=== PATIENT | female | born 1980 | race African-American/Black ===

== ENCOUNTER 2024-12-30 11:26 | Emergency (ER) | payer MEDICAID, OTHER ==
[~2024-12-30] VITALS: Ht 149.9 cm; Wt 61.3 kg
[2024-12-30 12:17] VITALS: TEMP 98.1
--- NOTE | 2024-12-30 12:39 | ED.PDOC ---
HPI (NEURO) HPI Comments This is a 44 year old female SHANEA presenting to the ED with chief complaint of seizure. Patient reports that she had experience 4 seizures today back to back with associated dizziness, generalized weakness, body pain, and nausea/vomiting today. Patient relays that she had attempted to take her Keppra today, but she vomited it out. Patient denies any headache, diarrhea, abdominal pain, numbness, chest pain, SOB, or blurred vision. Chief Complaint: Seizure Time Seen by MD: 12:36 Primary Care Provider: NONE Reviewed Notes: Nurses Notes, Career [facility] Director Notes, Medications, Allergies Information Source: Patient, Emergency Med Personnel Mode of Arrival: EMS Severity: Moderate Timing: Hours Duration: Since onset Prehospital treatment: None Seizure Quality: Tonic-clonic Weakness Location: Generalized Seizure Location: Generalized Onset: At rest Circumstances: Spontaneous Symptoms: Weakness Before: Normal During: LOC After: Normal Mentation History of: Seizure Disorder Past Medical History PAST MEDICAL HISTORY: Seizures Past Medical History (Other): Lupus Surgical History: Denies all surgeries 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/TEAM COACH Hx Family History Family History: Reviewed,noncontributory to illness Social History Smoker: Non-Smoker Alcohol: Denies ETOH Use Drugs: Denies Drug Use Lives In: Home Constitutional: reports: others (Body aches); denies: chills, diaphoresis, fatigue, fever, malaise, sweats, weakness EENTM: denies: blurred vision, double vision, ear bleeding, ear discharge, ear drainage, ear pain, ear ringing, eye pain, eye redness, hearing loss, mouth pain, mouth swelling, nasal discharge, nose bleeding, nose congestion, nose pain, photophobia, tearing, throat pain, throat swelling, voice changes, others Respiratory: denies: cough, hemoptysis, orthopnea, SOB at rest, shortness of breath, SOB with excertion, stridor, wheezing, others Cardiovascular: denies: chest pain, dizzy spells, diaphoresis, Dyspnea on exertion, edema, irregular heart beat, left arm pain, lightheadedness, palpitations, PND, syncope, others Gastrointestinal: reports: nausea, vomiting; denies: abdomen distended, abdominal pain, blood streaked bowels, constipated, diarrhea, dysphagia, difficulty swallowing, hematemesis, melena, poor appetite, poor fluid intake, rectal bleeding, rectal pain, others Genitourinary: denies: abnormal vagina bleeding, burning, dyspareunia, dysuria, flank pain, frequency, hematuria, incontinence, pain, , vagina discharge, urgency, others Neurological: reports: dizziness, seizure, weakness; denies: fainting, headache, left sided numbness, left sided weakness, numbness, paresthesia, pre- existing deficit, right sided numbness, right sided weakness, speech problems, tingling, tremors, others Musculoskeletal: denies: back pain, gout, joint pain, joint swelling, muscle pa in, muscle stiffness, neck pain, others Integumetry: denies: bruises, change in color, change in hair/nails, dryness, laceration, lesions, lumps, rash, wounds, others Allergic/Immunocompromised: denies: Difficulty Healing, Frequent Infections, Hives, Itching, others Hematologic/Lymphatic: denies: anemia, blood clots, easy bleeding, easy bruising, swollen glands, others Endocrine: denies: excessive hunger, excessive sweating, excessive thirst, excessive urination, flushing, intolerance to cold, intolerance to heat, unexplained weight gain, unexplained weight loss, others Psychiatric: denies: anxiety, bipolar disorder, depression, hopeless, panic disorder, schizophrenia, sleepless, suicidal, others All Other Systems: Reviewed and Negative Physical Exam General Appearance: No Apparent Distress, Other (Postictal state) HEENT: Normal ENT Inspection, PERRL/EOMI Neck: Full Range of Motion, Non-Tender, Normal, Normal Inspection Respiratory: Chest Non-Tender, Lungs Clear, No Accessory Muscle Use, No Respiratory Distress, Normal Breath Sounds Cardiovascular: No Edema, No JVD, No Murmur, No Gallop, Normal Peripheral Pulses, Regular Rate/Rhythm Breast Exam: Deferred Gastrointestinal: No Organomegaly, Non Tender, No Pulsatile Mass, Normal Bowel Sounds, Soft Genitalia: Deferred Pelvic: Deferred Rectal: Deferred Extremities: No calf tenderness, Normal capillary refill, Normal inspection, Normal range of motion, Non-tender, No pedal edema Musculoskeletal : Location: Bilateral Extremity Location: Other (Patient is aching all over) 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 Was a procedure done?: No Differential Diagnosis (SZ) Seizure: Psychogenic Seizure, Anticonvulsant Withdrawl, Hypocalcemia, Hypoglycemia, Hyponatremia, Hypoxemia, Mass Lesion, Epilepsy-Break Through CVA: Drug Overdose, Electrolyte Imbalance, Hypoglycemia, Mass Lesion General Weakness: Anemia, Dehydration, Dysrhythmia, Electrolyte imbalance, Encephalopathy, Hypotension, Hypovolemia Headache: Migraine, Intracerebral Hemorrhage, Mass Lesion X-Ray, Labs, Meds, VS Vital Signs Date Time Temp Pulse Resp B/P (MAP) Pulse Ox O2 Delivery O2 Flow Rate FiO2 12/30/24 14:00 65 18 114/81 12/30/24 13:35 78 18 138/90 12/30/24 13:00 81 21 99 Room Air* 0 21 12/30/24 12:17 98.1 79 18 123/82 (96) 100 98.1 12/30/24 12:08 79 12/30/24 12:00 99.4 98 18 127/78 (94) 98 99.4 Lab Test 12/30/24 15:10 12/30/24 13:34 Range/Units Urine Color Light-yellow Yellow Urine Clarity Clear Clear Urine pH 7.0 5.0-9.0 Urine Specific [place] 1.016 1.001-1.035 Urine Protein Negative Negative Urine Ketones Negative Negative Urine Blood Negative Negative /uL Urine Nitrite Negative Negative Urine Bilirubin Negative Negative Urine Urobilinogen Normal Negative mg/dL Urine Leukocyte Esterase 2+ Negative /uL Urine RBC 2 0 - 4 /hpf Urine Microscopic WBC 10 H 0-5 /HPF Urine Squamous Epithelial Cells Few <5 /hpf Urine Bacteria None seen None Seen /hpf Urine Mucus Few None Seen Urine Glucose 4+ H Normal mg/dL Urine Opiates Screen Pending Urine Fentanyl Screen Pending Urine Barbiturates Screen Pending Urine Phencyclidine Screen Pending Urine Amphetamines Screen Pending Urine Benzodiazepines Screen Pending Urine Cocaine Screen Pending Urine Cannabinoids Screen Pending White Blood Count Pending Red Blood Count Pending Hemoglobin Pending Hematocrit Pending Mean Corpuscular Volume Pending Mean Corpuscular Hemoglobin Pending Mean Corpuscular Hemoglobin Concent Pending Red Cell Distribution Width Pending Platelet Count Pending Mean Platelet Volume Pending Neutrophils (%) (Auto) Pending Lymphocytes (%) (Auto) Pending Monocytes (%) (Auto) Pending Basophils (%) (Auto) Pending Neutrophils # (Auto) Pending Lymphocytes # (Auto) Pending Monocytes # (Auto) Pending Sodium Level 139 136-145 mmol/L Potassium Level 3.7 3.5-5.1 mmol/L Chloride Level 107 98-107 mmol/L Carbon Dioxide Level 23 20-31 mmol/L Anion Gap 9 5-15 Blood Urea Nitrogen 9 9-23 mg/dL Creatinine 0.78 0.550-1.02 mg/dL Glomerular Filtration Rate Calc 97 >90 mL/min BUN/Creatinine Ratio 11.5 10.0-20.0 Serum Glucose 213 H 74-106 mg/dL Calcium Level 9.4 8.7-10.4 mg/dL Magnesium Level 1.7 1.6-2.6 mg/dL Total Bilirubin 0.2 0.2-1.0 mg/dL Aspartate Amino Transferase (AST) 12 L 13-40 U/L Alanine Aminotransferase (ALT) < 9 7-40 U/L Alkaline Phosphatase 75 46-116 U/L Total Protein 6.4 5.7-8.2 g/dL Albumin 4.0 3.2-4.8 g/dL Current Medications Medications (Trade) Dose Ordered Sig/Guy Route Start Time Stop Time Status Last Admin Levetiracetam 100 ml @ 400 mls/hr ONCE ONCE IV 12/30/24 12:30 12/30/24 12:44 DC 12/30/24 12:49 Morphine Sulfate 2 mg ONCE ONCE IV 12/30/24 13:15 12/30/24 13:16 DC 12/30/24 13:35 Ondansetron HCl (Zofran) 4 mg ONCE ONCE IV 12/30/24 13:15 12/30/24 13:16 DC 12/30/24 13:30 Sodium Chloride 500 ml @ 500 mls/hr Q1H ONCE IVB 12/30/24 13:15 12/30/24 14:14 DC 12/30/24 13:31 CT Head: FINDINGS: There is sulcal and ventricular prominence. The brainshows normal morphology and govea-white matter differentiation, without intracranial hemorrhage, extra-axial fluid collection, mass effect or acute large vessel in farct. The ventricles are normal in size. The basal cisterns are patent. The skull and visible facial bones are intact. The paranasal sinuses, mastoid air cells and middle ear cavities are well-aerated. The soft tissues of the scalp are unremarkable. IMPRESSION: No acute intracranial abnormality. X-Ray, Labs, Meds, VS Comment Course in the emergency department eventful patient came in after and she is having several seizures Patient received Ativan and Keppra on arrival Urine shows 4+ glucose and 2+ leukocyte esterase UDS pending CMP normal except for blood sugar of 213 Magnesium 1.7 CBC pending Patient will be admitted for further care Images Reviewed?: Images reviewed and evaluated by me Time of 1ST Reevaluation: 13:36 Reevaluation 1ST: Unchanged Patient Education/Counseling: Diagnosis, Treatment Family Education/Counseling: No Family Present Departure 1 Departure Time of Disposition: 15:54 Impression: Primary Impression: Recurrent seizures Additional Impressions: Body aches UTI (urinary tract infection) Hyperglycemia due to diabetes mellitus Disposition: ADMITTED INPATIENT Admit to: [facility] Condition: Serious Critical Care Note Critical Care Time?: No Stability Stability form required: Yes Heart Score Heart Score: Heart Score Response (Comments) Value History N/A 0 EKG N/A 0 Age <45 0 Risk Factors 1 or 2 risk factors 1 Troponin N/A 0 Total 1 I personally scribed for LLOYD LUNA MD ([email or web address]) on 12/30/24 at 12:39. Electronically submitted by Luan Griffith ([email or web address]). I personally scribed for LLOYD LUNA MD ([email or web address]) on 12/30/24 at 14:26. Electronically submitted by Luan Griffith ([email or web address]). LLOYD LUNA MD Dec 30, 2024 12:39
[2024-12-30] MEDS: levETIRAcetam 1000 mg/100ml 100 ML IV ONE (12:49)
[2024-12-30] MEDS: LORazepam 2MG/ML-1ML VIAL IV ONE (12:50)
[2024-12-30 13:00] VITALS: PULSE 81; RESP 21; O2SAT 99
[2024-12-30] MEDS: ONDANSETRON HCL 4 MG/2 ML VIAL IV ONE (13:30)
[2024-12-30] MEDS: SODIUM CHLORIDE 0.9% 500 ML IVB ONE (13:31)
[2024-12-30] MEDS: MORPHINE SULFATE INJ 2 MG/ml SYRG IV ONE (13:35)
--- NOTE | 2024-12-30 14:10 | DVH ---
CT HEAD WITHOUT CONTRAST INDICATION: Multiple seizures EXAM DATE: 12/30/2024 01:39 PM COMPARISON: None RADIATION DOSE: CTDIvol: 60.67 mGy, DLP: 1074.14 mGy*cm PROCEDURE: CT scans of the head were obtained from the vertex to the skull base. Sagittal and coronal reconstructions were provided. All CT scans at this medical facility are performed using dose modulation techniques as appropriate t o a performed exam including the following: Automated exposure control was utilized; adjustment of th e MA and/or KV according to patient size; and use of iterative reconstruction technique. FINDINGS: There is sulcal and ventricular prominence. The brainshows normal morphology and govea-whi te matter differentiation, without intracranial hemorrhage, extra-axial fluid collection, mass effect or acute large vessel infarct. The ventricles are normal in size. The basal cisterns are patent. The skull and visible facial bones are intact. The paranasal sinuses, mastoid air cells and middle ear c avities are well-aerated. The soft tissues of the scalp are unremarkable. IMPRESSION: No acute intracranial abnormality.
[2024-12-30 14:14] LABS: Albumin 4.0 g/dL (3.2-4.8); Alkaline Phosphatase 75 U/L (46-116); Anion Gap 9 (5-15); BUN/Creatinine Ratio 11.5 (10.0-20.0); Blood Urea Nitrogen 9 mg/dL (9-23); Calcium 9.4 mg/dL (8.7-10.4); Carbon Dioxide 23 mmol/L (20-31); Chloride 107 mmol/L (98-107); Magnesium 1.7 mg/dL (1.6-2.6); Potassium 3.7 mmol/L (3.5-5.1); Sodium 139 mmol/L (136-145); Total Protein 6.4 g/dL (5.7-8.2)
[2024-12-30 14:17] LABS: Alanine Aminotransferase < 9 U/L (7-40); Bilirubin, Total 0.2 mg/dL (0.2-1.0); Glucose 213 mg/dL (74-106)
[2024-12-30 15:47] LABS: Urine Protein, UAD Negative (Negative)
[2024-12-30 15:59] LABS: Barbiturate Scree,Urine Neg (NEGATIVE); Opiate Scree,Urine Neg (NEGATIVE); Phencyclidine Screen, Urine Neg (NEGATIVE)
[2024-12-30 16:00] VITALS: BP 135/98; PULSE 84; RESP 14; O2SAT 100
[2024-12-30 16:00] LABS: Amphetamine Screen, Urine Neg (NEGATIVE); Benzodiazephine Screen, Urine Neg (NEGATIVE); Cannabinoid Screen, Urine Neg (NEGATIVE); Cocaine Screen, Urine Neg (NEGATIVE)
== END 2024-12-30 16:15 | disposition left against medical advice (07) ==
LOC: ER 11:26
DX: G40.909 Epilepsy, unspecified, not intractable, without status epilepticus (principal); N39.0 Urinary tract infection, site not specified; E11.65 Type 2 diabetes mellitus with hyperglycemia; M79.18 Myalgia, other site
CPT/HCPCS: 36415; 70450; 80053; 80307; 81001; 83735; 96361; 96374; 96375; 99285; J1953; J2270; J2405; J7040